=== PATIENT | male | born 1995 | race Asian ===

== ENCOUNTER 2016-12-28 20:35 | Emergency (ER) | payer OTHER ==
[~2016-12-28] VITALS: Ht 170.2 cm; Wt 58.1 kg
[2016-12-28 20:40] VITALS: BP 111/60; PULSE 57; RESP 18; TEMP 98.3; O2SAT 98
--- NOTE | 2016-12-28 21:03 | NUR ---
Patient to ER bed H1 to gown for evaluation. Side rails up. Report given to Shabana
--- NOTE | 2016-12-28 21:08 | NUR ---
Patient to ER C/O severe nausea for the past week. Patient states that nausea pregresivelly worsened and today was severe, states "i feel like i ate alot of bad food but i didnt eat anything" Denies V/D/C. Afebrile, AAOx4, unlabored breathing, no signs of acute distress.
[2016-12-28] MEDS ORDERED: NACL 0.9% 1,000 ML IV ONE (21:09)
--- NOTE | 2016-12-28 21:10 | NUR ---
ER MD Hall evaluating the patient
[2016-12-28] MEDS ORDERED: KETOROLAC TROMETHAMINE 30 MG VIAL IVP ONE (21:15)
[2016-12-28] MEDS ORDERED: PROMETHAZINE HCL 25 MG/ML AMP IVP ONE (21:15)
--- NOTE | 2016-12-28 21:15 | NUR ---
# 20 gauge angiocath placed to LEFT AC. Use of asceptic technique. Opsite placed over site. Blood return noted. Flushed with 10 cc of normal saline. No evidence of infiltration noted. Patient tolerated well.
--- NOTE | 2016-12-28 21:16 | NUR ---
Patient to ER bed 06 to gown for evaluation. Side rails up. Report given to Shabana
[2016-12-28 21:25] LABS: BILIRUBIN,URINE NEGATIVE (NEGATIVE); BLOOD, URINE NEGATIVE (NEGATIVE); CLARITY/URINE CLEAR (CLEAR); COLOR,URINE YELLOW (YELLOW); GLUCOSE,URINE NEGATIVE (NEGATIVE); KETONES,URINE TRACE (NEGATIVE); LEUKOCYTE ESTERASE ,URINE NEGATIVE (NEGATIVE); NITRITE, URINE NEGATIVE (NEGATIVE); PROTEIN URINE TRACE (NEGATIVE)
[2016-12-28 21:28] LABS: EOSINOPHILS # (AUTO) 0.1 K/uL (0.0-0.4); LYMPHOCYTES # (AUTO) 1.9 K/uL (1.0-5.5); MEAN CORPUSCULAR HEMOGLOBIN 29 pg (27-31); MEAN CORPUSCULAR VOLUME 89 fL (79.0-98.0); MONOCYTES # (AUTO) 0.4 K/uL (0.0-1.0); WHITE BLOOD COUNT (AUTO) 6.7 K/uL (4.5-11.0)
[2016-12-28 21:43] LABS: BASOPHILS % (AUTO) 0.5 % (0.0-2.0); EOSINOPHILS % (AUTO) 1.4 % (0.0-4.0); HEMATOCRIT 47.6 % (36-54); HEMOGLOBIN 15.4 g/dL (14.0-18.0); LYMPHOCYTES % (AUTO) 28.5 % (20.5-51.5); MEAN CORPUSCULAR HGB CONC 32 % (32-36); MONOCYTES % (AUTO) 6.1 % (1.7-9.3); NEUTROPHILS # (AUTO) 4.3 K/uL (1.8-7.7); NEUTROPHILS % (AUTO) 63.5 % (40.0-70.0); PLATELET COUNT (AUTO) 186 K/uL (130-430); RED BLOOD CELL COUNT(AUTO) 5.33 MIL/uL (4.2-6.2); RED CELL DISTRIBUTION WIDTH 12.4 % (9.0-15.0)
[2016-12-28 21:54] LABS: BACTERIA,URINE FEW /HPF (None Seen); MUCUS,URINE 3+ /LPF (None Seen); RBC,URINE NONE SEEN /HPF (0-3); WBC,URINE 0-3 /HPF (0-3)
[2016-12-28 21:58] LABS: BARBITURATE, URINE NEGATIVE (NEG <=200); BENZODIAZEPINE, URINE NEGATIVE (NEG <=150); CANNABINOID, URINE POSITIVE (NEG <=50); COCAINE, URINE NEGATIVE (NEG <=150); METHAMPHETAMINES SCREEN,URINE NEGATIVE (NEG <=500); OPIATE, URINE NEGATIVE (NEG <=100); PHENCYCLIDINE SCREEN,URINE NEGATIVE (NEG <=25); UR TRICYCLIC ANTIDEPRESSANTS NEGATIVE (NEG <=300); URINE AMPHETAMINE NEGATIVE (NEG <=500); URINE METHADONE NEGATIVE (NEG <=200); URINE OXYCODONE SCREEN NEGATIVE (NEG <=100); URINE PROPOXYPHENE SCREEN NEGATIVE (NEG <=300)
[2016-12-28 21:59] LABS: CALCIUM 9.7 mg/dL (8.4-11.0); CREATININE 0.92 mg/dL (0.55-1.30); POTASSIUM 4.2 mmol/L (3.5-5.1)
[2016-12-28 22:02] LABS: PROTHROMBIN TIME 11.3 SECS (9.5-12.5)
[2016-12-28 22:03] LABS: ALBUMIN 4.9 g/dL (3.4-4.8); TOTAL BILIRUBIN 0.8 mg/dL (0.0-1.0); TOTAL PROTEIN, SERUM 8.5 g/dL (6.4-8.3)
[2016-12-28 22:30] VITALS: BP 115/67; PULSE 69; RESP 18; TEMP 98; O2SAT 98
--- NOTE | 2016-12-28 22:30 | NUR ---
Patient given written and verbal discharge instructions and verbalizes understanding. ER MD Hall discussed with patient the results and treatment provided. Patient in stable condition. ID arm band removed. IV catheter removed intact and dressing applied, no active bleeding. Rx of zofran & tylenol given. Patient educated on pain management and to follow up with PMD. Pain Scale 0/10. Opportunity for questions provided and answered.
== END 2016-12-28 22:30 | disposition home or self-care (01) ==
LOC: SED 20:35
DX: K52.9 Noninfective gastroenteritis and colitis, unspecified (principal); G44.209 Tension-type headache, unspecified, not intractable; F12.10 Cannabis abuse, uncomplicated
CPT/HCPCS: 36415; 80053; 80307; 81000; 82150; 83690; 85025; 85610; 85730; 96361; 96374; 96375; 99284; J1885; J2550; J7030

== ENCOUNTER 2017-02-15 19:35 | Emergency (ER) | payer OTHER ==
[~2017-02-15] VITALS: Ht 160 cm; Wt 56.7 kg
[2017-02-15 20:06] VITALS: BP_SYST 107
[2017-02-15] MEDS ORDERED: ACETAMINOPHEN 500 MG TABLET PO ONE (20:15)
[2017-02-15] MEDS ORDERED: DIPH-TET-PERTUS Vaccine 0.5 ML VIAL (ADACEL) I.M. ONE (20:15)
[2017-02-15 20:45] VITALS: BP_SYST 110
== END 2017-02-15 20:45 | disposition home or self-care (01) ==
LOC: SED 19:35
DX: S61.011A Laceration without foreign body of right thumb without damage to nail, initial encounter (principal); W25.XXXA Contact with sharp glass, initial encounter; Y93.H9 Activity, other involving exterior property and land maintenance, building and construction; Y92.89 Other specified places as the place of occurrence of the external cause; Y99.8 Other external cause status
CPT/HCPCS: 90715; 99283

== ENCOUNTER 2017-10-31 15:12 | Emergency (ER) | payer OTHER ==
[~2017-10-31] VITALS: Ht 167.6 cm; Wt 56.7 kg
[2017-10-31 15:12] VITALS: BP_SYST 100
--- NOTE | 2017-10-31 15:15 | NUR ---
Patient triaged and placed in waiting room. VSS and patient appears in no acute distress at this time. Accompanied by FAMILY, awaiting available bed, and MD notified of need for MSE.
--- NOTE | 2017-10-31 16:30 | NUR ---
DMV Report filed and faxed to [phone]. PT AWARE OF DMV REPORT
--- NOTE | 2017-10-31 17:14 | NUR ---
Placed in room 2. Placed on research and development engineer, blood pressure machine and pulse oximeter. To gown for exam. Side rails up. Report given to Jesus GUILLERMO.
--- NOTE | 2017-10-31 17:20 | NUR ---
ER at bedside examining patient.
--- NOTE | 2017-10-31 17:25 | NUR ---
Patient is ambulatory, a/ox4, denies previous medical history. He states that he was at home and fainted all of a sudden. Denies dizziness, nausea, and states that he feels fine now. Will continue to monitor.
[2017-10-31 17:26] LABS: BASOPHILS % (AUTO) 0.6 % (0.0-2.0); EOSINOPHILS # (AUTO) 0.2 K/uL (0.0-0.4); EOSINOPHILS % (AUTO) 2.4 % (0.0-4.0); HEMATOCRIT 44.1 % (36-54); HEMOGLOBIN 14.5 g/dL (14.0-18.0); LYMPHOCYTES # (AUTO) 1.3 K/uL (1.0-5.5); LYMPHOCYTES % (AUTO) 19.2 % (20.5-51.5); MEAN CORPUSCULAR HEMOGLOBIN 29 pg (27-31); MEAN CORPUSCULAR HGB CONC 33 % (32-36); MEAN CORPUSCULAR VOLUME 89 fL (79.0-98.0); MONOCYTES # (AUTO) 0.5 K/uL (0.0-1.0); MONOCYTES % (AUTO) 7.2 % (1.7-9.3); NEUTROPHILS # (AUTO) 4.9 K/uL (1.8-7.7); NEUTROPHILS % (AUTO) 70.6 % (40.0-70.0); PLATELET COUNT (AUTO) 187 K/uL (130-430); RED BLOOD CELL COUNT(AUTO) 4.98 MIL/uL (4.2-6.2); WHITE BLOOD COUNT (AUTO) 6.9 K/uL (4.8-10.8)
[2017-10-31 17:43] LABS: BILIRUBIN,URINE NEGATIVE (NEGATIVE); BLOOD, URINE NEGATIVE (NEGATIVE); CLARITY/URINE CLEAR (CLEAR); COLOR,URINE YELLOW (YELLOW); GLUCOSE,URINE NEGATIVE (NEGATIVE); KETONES,URINE NEGATIVE (NEGATIVE); LEUKOCYTE ESTERASE ,URINE NEGATIVE (NEGATIVE); NITRITE, URINE NEGATIVE (NEGATIVE); PH,URINE 6.5 (5.0-8.0); PROTEIN URINE TRACE (NEGATIVE); UROBILINOGEN,URINE 0.2 (0.2-1.0)
[2017-10-31 17:47] LABS: ANION GAP 4 (5-15); CALCIUM 9.9 mg/dL (8.4-11.0); CHLORIDE 104 mmol/L (98-107); CREATININE 0.65 mg/dL (0.55-1.30); GLUCOSE 60 mg/dL (70-99); POTASSIUM 3.7 mmol/L (3.5-5.1); SODIUM SERUM 140 mmol/L (136-145); UREA NITROGEN, BLOOD 10 mg/dL (8-21)
[2017-10-31 17:52] LABS: GFR AFRICAN AMERICAN 199 mL/min (>90)
[2017-10-31 17:58] LABS: BARBITURATE, URINE NEGATIVE (NEG <=200); BENZODIAZEPINE, URINE NEGATIVE (NEG <=150); CANNABINOID, URINE POSITIVE (NEG <=50); COCAINE, URINE NEGATIVE (NEG <=150); METHAMPHETAMINES SCREEN,URINE NEGATIVE (NEG <=500); OPIATE, URINE NEGATIVE (NEG <=100); PHENCYCLIDINE SCREEN,URINE NEGATIVE (NEG <=25); UR TRICYCLIC ANTIDEPRESSANTS NEGATIVE (NEG <=300); URINE AMPHETAMINE NEGATIVE (NEG <=500); URINE METHADONE NEGATIVE (NEG <=200); URINE OXYCODONE SCREEN NEGATIVE (NEG <=100); URINE PROPOXYPHENE SCREEN NEGATIVE (NEG <=300)
[2017-10-31 17:59] LABS: ALANINE AMINOTRANSFERASE 25 U/L (12-78); ASPARTATE AMINOTRANSFERASE 18 U/L (10-37); TOTAL BILIRUBIN 0.4 mg/dL (0.0-1.0)
[2017-10-31 18:00] LABS: ALBUMIN 4.4 g/dL (3.4-4.8); ALCOHOL, BLOOD < 3 mg/dL (<10); PROTHROMBIN TIME 10.4 SECS (9.5-12.5)
[2017-10-31 18:17] LABS: BACTERIA,URINE RARE /HPF (None Seen); MUCUS,URINE 1+ /LPF (None Seen); RBC,URINE 0-3 /HPF (0-3); WBC,URINE 0-3 /HPF (0-3)
--- NOTE | 2017-10-31 19:00 | NUR ---
Patient given written and verbal discharge instructions and verbalizes understanding. ER MD discussed with patient the results and treatment provided. Patient in stable condition. ID arm band removed. Patient educated on pain management and to follow up with PMD. Pain Scale 0/10. Opportunity for questions provided and answered. Medication side effect fact sheet provided.
[2017-10-31 19:08] VITALS: BP_SYST 119
== END 2017-10-31 19:08 | disposition home or self-care (01) ==
LOC: SED 15:12
DX: R55 Syncope and collapse (principal); R42 Dizziness and giddiness; F12.10 Cannabis abuse, uncomplicated; Z90.89 Acquired absence of other organs
CPT/HCPCS: 36415; 70450; 71045; 80053; 80307; 81000; 83880; 84484; 85025; 85379; 85610; 85730; 93005; 99285; G0482

== ENCOUNTER 2019-05-10 22:44 | Emergency (ER) | payer MEDICAID, OTHER ==
[~2019-05-10] VITALS: Ht 167.6 cm; Wt 48.5 kg
[2019-05-10 22:54] VITALS: BP_SYST 101
--- NOTE | 2019-05-11 00:07 | NUR ---
Patient to ER bed 6 to gown for evaluation. Side rails up. Report given to Yakelin GUILLERMO.
--- NOTE | 2019-05-11 02:00 | NUR ---
Per registration pt observed leaving the ER. Pt lwbs.
== END 2019-05-11 02:00 | disposition left against medical advice (07) ==
LOC: SED 22:44
DX: R22.31 Localized swelling, mass and lump, right upper limb (principal); Z53.21 Procedure and treatment not carried out due to patient leaving prior to being seen by health care provider